=== PATIENT | male | born 1945 | race Two or more races ===

== ENCOUNTER 2024-03-24 08:36 | Outpatient (AMB) | payer MEDICARE, OTHER, SELFPAY ==
--- NOTE | 2024-03-24 08:49 | A.SPINEOV_ITS ---
Intake Visit Reasons: Radiculopathy, lumbar region Intake Note: Mr. May is here today c/o low back pain that radiates down both legs. Hydraulic Controls Technician Required: Yes Hydraulic Controls Technician Name: Carmen May Assessment & Plan Assessment & Plan (1) Cervical disc disorder: Code(s): M50.90 - Cervical disc disorder, unspecified, unspecified cervical region Category: Medical (2) Lumbar radiculopathy: Code(s): M54.16 - Radiculopathy, lumbar region Category: Medical Plan Dear Miguel, Thank you for referring Mr May to our office today. 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 He has had back pain for years and it has not something that he would otherwise complaint about, but over the last year it has gotten to the point where it started to radiate down his legs to where he can hardly walk. The back pain level has also increased significantly over the last year. The pain gets significantly worse when he stands and walks, gets better when he sits down. He uses a shopping cart in the grocery store just to get through his shopping tasks. Without it he would be unable to walk. He is undergone physical therapy, cortisone injections with some success. He has due for an upcoming injection on April 09. He can not take anti-inflammatories because of kidney issues, and is also limited with how much Tylenol he can take because of a fatty liver. Mostly he has been trying to deal with the pain as best he can. He does not take narcotics. He comes today to see us for evaluation with an MRI showing severe stenosis at L4-5 amongst other degenerative changes. PMH: He has a history of compensated diastolic heart failure, fatty liver disease, with some alcohol related liver disease, chronic kidney disease. He has followed by a draw frame tender I believe Dr. Simeon according to the [facility] [facility] records. His last creatinine was 1.6, but typically it had been in the normal range prior to that reading done a few months ago. He tells me that the doctor said he just needs routine monitoring and that the number was coming down according to some of the blood test that was done. He has mild aortic stenosis. He is followed by Cardiology for this at [place]. He has a recent note from January of 2024. They were following him for some leg swelling which is related to his amlodipine and they were adjusting his Lasix. He is chronic anemia his hematocrit tends to run in the mid 30s, hyperlipidemia. He denies any problems with his lungs, bleeding disorders, previous abdominal surgery, previous back surgery. Social hx: He does not smoke, he quit drinking a year ago but prior to that had a 5-6 beers a day habit, denies any medicinal marijuana or recreational drugs Medications: Lasix, amlodipine, folic acid, lisinopril, iron, carvedilol, hydralazine Allergies: None Physical exam: He is awake alert oriented here with his today, he is slow to stand up and get out of the chair to get on the examining table. He has lots of pain with standing. On motor examination testing, he has diffuse weakness of his upper extremities I would rate this as 4-5, with the hands being slightly weaker maybe 4-. Some of the right-sided weakness is related to a shoulder problem that he has that limits his ability to exert. He also has bilateral iliopsoas weakness which I would rate as 4-5. Distal lower extremity strength is full. I could not test his right ankle because of a fusion to that area. He is diffusely hyperreflexic with pectoral reflexes and Luis's sign in his left hand. Both patellar reflexes are hyperreflexic. Could not test his right ankle for clonus because of the fusion, no clonus in the left ankle. Imaging review: He has a lumbar MRI done at [facility] showing slight retrolisthesis of L3 on L4, significant disc collapse of L4 and L5 with b asically qawk-in-fjah endplate contact with severe central canal stenosis. He has disc degeneration at L5-S1 with right L5 foraminal stenosis. There also T2 hyperintense changes along the posterior aspect of the spinal canal which look possibly like they could be a synovial cyst. Impression: 78-year-old male presents with severe acute on chronic low back pain and bilateral lower extremity pain, left greater than right with standing walking which goes away when he sits. Seems fairly classic for neurogenic claudication. His MRI shows slight retrolisthesis of L3 on L4, severe disc collapse at L4-5 with severe central canal stenosis as well as degenerative changes at L5-S1 with right L5 foraminal narrowing and what appeared to be possible synovial cysts in the posterior spinal canal. I believe this gentleman would be a good candidate for surgery. Most likely this is going to be lumbar fusion. He has trialed conservative treatment and things only seemed to be continuing to get worse. I would like to get flexion-extension x-rays with an AP view to get a more clear look at what is spine is doing in a vertical position. He may need multiple levels of his spine fused depending on the results of the x-rays. Also, I would like to get a cervical MRI because of the hyperreflexia and diffuse weakness in the arms in the proximal lower extremity muscle groups. I suspect he may have a cervical myelopathy. He does report numbness of his hands and some gait imbalance. Thank you for allowing us to care for your patient. The total time spent with this visit with this patient was 45 minutes reviewing history, physical exam, lumbar imaging review, and implementation of treatment plan or further diagnostic testing Shawn Thapa MD,PhD [facility] [place] Orders: Orders XR cervical spine 4V Today M50.90 - Cervical disc disorder, unspecified, unspecified cervical region XR lumbar spine 4V min Today M54.16 - Radiculopathy, lumbar region MR cervical spine wo con Today M50.90 - Cervical disc disorder, unspecified, unspecified cervical region Coding Level of Care Code New Pt Level 4 (56402) Diagnoses Cervical disc disorder M50.90 Lumbar radiculopathy M54.16
== END 2024-03-24 09:53 | disposition home or self-care (01) ==
PROVIDERS: PCP Podiatrist; Referring Provider Physician Assistant; Visit Provider Physician Assistant
DX: M50.90 Cervical disc disorder, unspecified, unspecified cervical region (principal); M54.16 Radiculopathy, lumbar region
CPT/HCPCS: 99204

== ENCOUNTER 2024-03-24 08:36 | Outpatient (REF) | payer MEDICARE, OTHER, SELFPAY ==
--- NOTE | ~2024-03-24 | XR_ITS ---
EXAMINATION: XR lumbar spine 4V min, XR cervical spine 4V CLINICAL INFORMATION: Cervical disc disorder COMPARISON: None TECHNIQUE: 5 views of the cervical spine and 4 views of the lumbar spine FINDINGS: CERVICAL SPINE: The cervical spine is visualized to the level of C7-T1 on the lateral view. Dextroconvex curvature of the cervical spine. There is 4 mm of anterolisthesis of C3 on C4 in flexion which is neutral and extension views, 4 mm of anterolisthesis of C5 on C6 in flexion which measures 2 mm in extension views and 2 mm of anterolisthesis of C6 on C7 in flexion which is neutral in extension views. Vertebral body heights are maintained. Advanced multilevel degenerative disc disease with loss of disc space height and facet arthropathy. No prevertebral soft tissue swelling. Calcifications in the soft tissues of the left neck may reflect carotid calcifications. LUMBAR SPINE: 5 nonrib-bearing lumbar-type vertebral bodies. Mildly increased hepatic echogenicity which can be seen in the setting of hepatic steatosis or underlying liver disease. Age indeterminate wedge compression deformities of the T11 through L1 vertebral bodies, versus less likely physiologic wedging. Dextroconvex curvature of the lumbar spine. Mild grade 1 retrolisthesis of L2 on L3, and L3 on L4 and mild grade 1 anterolisthesis of L4 on L5, not significantly changed in flexion and extension views Multilevel degenerative disc disease worse at L4-L5 where there is advanced loss of disc space height with multilevel facet arthropathy. Paravertebral soft tissues are unremarkable. XR/XR lumbar spine 4V min IMPRESSION: CERVICAL SPINE: Dextroconvex curvature of the cervical spine. There is 4 mm of anterolisthesis of C3 on C4 in flexion which is neutral and extension views, 4 mm of anterolisthesis of C5 on C6 in flexion which measures 2 mm in extension views and 2 mm of anterolisthesis of C6 on C7 in flexion which is neutral in extension views. Advanced multilevel degenerative disc disease with loss of disc space height and facet arthropathy. LUMBAR SPINE: Age indeterminate wedge compression deformities of the T11 through L1 vertebral bodies, versus less likely physiologic wedging. Dextroconvex curvature of the lumbar spine. Mild grade 1 retrolisthesis of L2 on L3, and L3 on L4 and mild grade 1 anterolisthesis of L4 on L5, not significantly changed in flexion and extension views.
--- NOTE | ~2024-03-24 | XR_ITS ---
EXAMINATION: XR lumbar spine 4V min, XR cervical spine 4V CLINICAL INFORMATION: Cervical disc disorder COMPARISON: None TECHNIQUE: 5 views of the cervical spine and 4 views of the lumbar spine FINDINGS: CERVICAL SPINE: The cervical spine is visualized to the level of C7-T1 on the lateral view. Dextroconvex curvature of the cervical spine. There is 4 mm of anterolisthesis of C3 on C4 in flexion which is neutral and extension views, 4 mm of anterolisthesis of C5 on C6 in flexion which measures 2 mm in extension views and 2 mm of anterolisthesis of C6 on C7 in flexion which is neutral in extension views. Vertebral body heights are maintained. Advanced multilevel degenerative disc disease with loss of disc space height and facet arthropathy. No prevertebral soft tissue swelling. Calcifications in the soft tissues of the left neck may reflect carotid calcifications. LUMBAR SPINE: 5 nonrib-bearing lumbar-type vertebral bodies. Mildly increased hepatic echogenicity which can be seen in the setting of hepatic steatosis or underlying liver disease. Age indeterminate wedge compression deformities of the T11 through L1 vertebral bodies, versus less likely physiologic wedging. Dextroconvex curvature of the lumbar spine. Mild grade 1 retrolisthesis of L2 on L3, and L3 on L4 and mild grade 1 anterolisthesis of L4 on L5, not significantly changed in flexion and extension views Multilevel degenerative disc disease worse at L4-L5 where there is advanced loss of disc space height with multilevel facet arthropathy. Paravertebral soft tissues are unremarkable. XR/XR cervical spine 4V IMPRESSION: CERVICAL SPINE: Dextroconvex curvature of the cervical spine. There is 4 mm of anterolisthesis of C3 on C4 in flexion which is neutral and extension views, 4 mm of anterolisthesis of C5 on C6 in flexion which measures 2 mm in extension views and 2 mm of anterolisthesis of C6 on C7 in flexion which is neutral in extension views. Advanced multilevel degenerative disc disease with loss of disc space height and facet arthropathy. LUMBAR SPINE: Age indeterminate wedge compression deformities of the T11 through L1 vertebral bodies, versus less likely physiologic wedging. Dextroconvex curvature of the lumbar spine. Mild grade 1 retrolisthesis of L2 on L3, and L3 on L4 and mild grade 1 anterolisthesis of L4 on L5, not significantly changed in flexion and extension views.
== END 2024-03-24 08:37 | disposition home or self-care (01) ==
LOC: HO.HOSX 08:36
PROVIDERS: PCP Podiatrist; Visit Provider Physician Assistant
DX: M50.90 Cervical disc disorder, unspecified, unspecified cervical region (principal); M54.16 Radiculopathy, lumbar region
CPT/HCPCS: 72050; 72110; 99202

== ENCOUNTER 2024-04-25 13:39 | Outpatient (AMB) | payer MEDICARE, OTHER, SELFPAY ==
--- NOTE | 2024-04-25 13:47 | A.SPINEOV_ITS ---
Intake Visit Reasons: f/up MRI /review surgery Intake Note: Mr. May is here today to discuss MRI results. Iron Melter Required: Yes Assessment & Plan Assessment & Plan (1) Lumbar radiculopathy: Code(s): M54.16 - Radiculopathy, lumbar region Category: Medical (2) Cervical disc disorder: Code(s): M50.90 - Cervical disc disorder, unspecified, unspecified cervical region Category: Medical Plan Dear colleague, On 04/25/2024, I saw for follow-up Jackson May to discuss possible minimally invasive lumbar fusion L4-S1 for back pain and neurogenic claudication. In the meantime, he developed a venous thrombosis was right calf and is on Eliquis. He also had an active bleeding going on most likely coming from the digestive tract which is no longer active. Obviously, the patient is currently no surgical candidate and the surgical plan needs to be postponed until he is off the Eliquis. I recommended to make a new appointment in 6 months for a re- evaluation. I will call and update the patient with the MRI cervical spine findings. I spent 15 minutes in his consult. Jack Thapa MD, PhD Spine Fellowship Trained Neurosurgeon Director, [facility] [place] [facility] Coding Level of Care Code Est Pt Level 2 (96146) Diagnoses Lumbar radiculopathy M54.16 Cervical disc disorder M50.90
== END 2024-04-25 13:58 | disposition home or self-care (01) ==
PROVIDERS: PCP Podiatrist; Visit Provider Neurological Surgery
DX: M54.16 Radiculopathy, lumbar region (principal); M50.90 Cervical disc disorder, unspecified, unspecified cervical region
CPT/HCPCS: 99212

== ENCOUNTER → 2024-04-25 13:39 | Outpatient (BNVA) | payer MEDICARE, OTHER, SELFPAY | PROVIDERS: PCP Podiatrist; Visit Provider Neurological Surgery | DX: M54.16 Radiculopathy, lumbar region (principal); M50.90 Cervical disc disorder, unspecified, unspecified cervical region | CPT/HCPCS: 99212 ==

== ENCOUNTER 2024-11-27 16:17 | Outpatient (REF) | payer MEDICARE, OTHER, SELFPAY | END 2024-11-27 16:18 | disposition home or self-care (01) | LOC: HO.LNP 16:17 | PROVIDERS: Visit Provider Physician Assistant | DX: Z13.89 Encounter for screening for other disorder (principal) ==

== ENCOUNTER 2025-08-20 08:45 | Outpatient (AMB) | payer MEDICARE, OTHER, SELFPAY ==
--- NOTE | 2025-08-20 08:48 | A.PHYSOV_ITS ---
Vital Signs 08/20/25 08:53 Height 5 ft 10 in Weight 158 lb BMI 22.7 Intake Visit Reasons: 1M FUV Intake Note: Patient is a 80 year old male here today for chronic low back pain. Physician Neonatology Required: No Allergies No Known Allergies Allergy (Verified 08/20/25 08:50) HPI Comments Details: History of Present Illness Mr. May is a 80-year-old male seen in evaluation today for chronic low back pain with radiculopathy. Patient does have severe spinal canal stenosis at L4- 5. Patient also has compression of the L4 nerve roots as well as left L5. Patient did see 50% reduction of his pain for 1 week with L5-S1 KARTHIKEYAN. Patient would like to consider further treatment options. Patient is not interested in surgery at this time. He has been using Percocet for pain sparingly but unfortunately is not helpful. He is here today to undergo glenohumeral injection bilaterally. He has a pain level today of 7/10. His symptoms are worse with activity and improved with rest. He has failed conservative treatment. Procedure: Caudal injection 07/25/2024 good relief of his symptoms for 1 week and a half. Bilateral glenohumeral aspiration and injection 04/20/2025 L5-S1 KARTHIKEYAN 05/22/2025 50% reduction of his pain for 1 week. Bilateral knee cortisone injection 06/09/2025\ Bilateral glenohumeral joint injection 08/20/2025 [facility] Surgical History (Updated 08/20/25 @ 08:53 by Leslie Ellington MA) History of ankle surgery H/O: knee surgery Social History (Updated 08/19/25 @ 10:41 by Leslie Ellington MA) Alcohol intake: current Alcohol intake frequency: does not drink Patient Tobacco Use Status: Never used Tobacco Use of substances other than those prescribed or required for medical reasons: No Current occupational status: retired Review of Systems Narrative Review of Systems Consistent with low back pain with radiculopathy, bilateral shoulder pain. No incontinence, saddle anesthesia urinary retention. Physical Exam Exam Exam: Physical Exam Lumbar Spine: Examination of his lumbar spine, there is no visible swelling or deformity. He is tender to lower lumbar facets. Has full range of motion of his lumbar spine. He does have an increase in pain with facet loading. Special Tests: Lhermittes sign was negative Heel Toe walk is normal Left straight leg raise: Negative Right straight leg raise: Negative Special tests Leeann test is negative Ganslen's test is negative SI Joint compression test negative Sarmad test negative Piriformis stretch is negative Lower Extremities: Full range of motion bilateral lower extremities. No calf pain or edema. Neuro: Sensation: Intact to lower extremities bilaterally Strength L2 (Psoas): 5/5 on the left and 5/5 on the right. L3 (Quads): 5/5 on the left and 5/5 on the right. L4 (Ant tibialis): 5/5 on the left and 5/5 on the right. L5 (EHL) 5/5 on the left and 5/5 on the right. S1 (Gastroc): 5/5 on the left and 5/5 on the right. DTR L4: (Patellar) Left 1 Right 1 S1: (Achilles) Left 1 Right 1 Babinski Downgoing No pathologic clonus. No involuntary movement. Vital Signs: BMI result Body Mass Index 22.7 Office Procedures AMB Shoulder Injection AMB Shoulder Injection Procedure Details: Bilateral Glenohumeral joint injection: The patient was educated about risks, complications and benefits including but not limited to increased serum glucose, infection, nerve damage, bleeding, tendon/ligament damage and pain. We agree with a left glenohumeral injection is the next best step in the treatment plan. Verbal consent was obtained. Using aseptic technique, the skin was cleansed with Betadine. Ethyl chloride was used to desensitize the skin. Using a posterior approach, 40 mg of Kenalog and 3 mL 2% lidocaine were injected using a 25-gauge inch and a half needle into the joint. The patient tolerated the proce dure well without immediate complication. Postinjection instructions were given. The procedure was repeated on the right. Shoulder Injection - : Bilateral All charges added?: Procedure code (CPT) selection complete Office Meds Kenalog 40 mg/mL suspension for injection Performing Provider: GLORIA Hauser Performing Location: [facility] Administered by: GLORIA Hauser on 08/20/25 09:21 Dose Route Admin Location Dispensed Lot Number Expiration Date [facility] [employer] 40 mg intra-articular 1 mL [id number] [employer] Total Dispensed Waste 1 mL 0 % lidocaine (PF) 20 mg/mL (2 %) injection solution Performing Provider: GLORIA Hauser Performing Location: [facility] Administered by: GLORIA Hauser on 08/20/25 09:21 Dose Route Admin Location Dispensed Lot Number Expiration Date [facility] [employer] 60 mg intra-articular 50 mL [id number] Total Dispensed Waste 50 mL 0 % Assessment & Plan Assessment & Plan (1) Lumbar radiculopathy: Code(s): M54.16 - Radiculopathy, lumbar region Category: Medical (2) Spinal stenosis, lumbar region with neurogenic claudication: Code(s): M48.062 - Spinal stenosis, lumbar region with neurogenic claudication Category: Medical (3) Primary osteoarthritis of shoulder: Code(s): M19.019 - Primary osteoarthritis, unspecified shoulder Category: Medical Qualifiers: Laterality: bilateral Qualified Code(s): M19.011 - Primary osteoarthritis, right shoulder; M19.012 - Primary osteoarthritis, left shoulder (4) Chronic pain: Code(s): G89.29 - Other chronic pain Category: Medical Qualifiers: Chronic pain type: chronic pain syndrome Qualified Code(s): G89.4 - Chronic pain syndrome Plan Pain Management - Analgesia: Bilateral shoulder injections planned - Activities of Daily Living: Pain management to improve daily function - Adverse Effects: Potential increase in blood glucose levels due to injections Plan Patient was informed and verbally consented to the use of an ambient scribe for clinic note documentation during this visit. 1. Bilateral Shoulder Pain Secondary to osteoarthritis. Today he consented to bilateral glenohumeral joint injection. He is given post-injection instructions, recommend: Moist heat compresses for 15 minutes 5 times daily. Patient will continue his home exercise plan and medications as prescribed. I will prescribe tramadol for use for severe chronic pain including osteoarthritis of bilateral shoulders, severe spinal canal stenosis as well as severe knee osteoarthritis. Patient will use the medication 3 times a day. We will potentially contract him in the future 2. Patient does have severe spinal canal stenosis at L4-5 as well as compression of the L4 nerve roots. I recommend bilateral L4 TFE and he is eager to proceed. We will obtain prior authorization for his injection and contact him once we have done so. We discussed the benefits of proper nutrition and exercise to maintain a healthy body weight to improve longevity and function. We also discussed the benefits of proper lifting techniques, core strengthening and proper posture. Thank you for allowing me to participate in the care of your patient. Orders: Orders AMB Shoulder Injection Today M19.019 - Primary osteoarthritis, unspecified shoulder Medications: New tramadol 50 mg PO Q8H PRN 21 tabs 0RF pain M19.011 - Primary osteoarthritis, right shoulder, M19.012 - Primary osteoarthritis, left shoulder, M54.16 - Radiculopathy, lumbar region Coding Level of Care Code Tele Est Pt Level 4 (19383) Diagnoses Lumbar radiculopathy M54.16 Spinal stenosis, lumbar region with neurogenic claudication M48.062 Primary osteoarthritis of both shoulders M19.011; M19.012 Laterality: bilateral Chronic pain syndrome G89.4 Chronic pain type: chronic pain syndrome CPT Codes AMB Shoulder Injection - Hip/Bursa Injection - : Bilateral ([id number])
[2025-08-20 08:53] VITALS: BMI 22.7
--- OUTSIDE RECORDS SUMMARY | 2025-08-20 10:04 | XMS_ITS | Clinical Summary ---
Author Organization [facility] Address [address] [place] [address] Phone Care Team Providers Care Adobe Layer Helper Name Role Phone Unavailable Primary Care Provider Unavailabl e Allergies No known active allergies Medications furosemide (LASIX) 40 MG tablet Take 40 mg by mouth 1 (one) time each day 03/27/2024 Active folic acid (FOLVITE) 1 MG tablet Take 1 mg by mouth 1 (one) time each day 01/30/2023 Active amLODIPine (NORVASC) 5 MG tablet Take 5 mg by mouth in the morning. 03/05/2025 Active aspirin (ST NIRAV) 81 MG EC tablet Take 81 mg by mouth in the morning. Active cyanocobalamin (VITAMIN B-12) 1000 MCG tablet Take 1,000 mcg by mouth in the morning. 06/19/2024 Active Docusate Sodium (DSS) 100 MG capsule Take 100 mg by mouth in the morning and 100 mg in the evening. 05/13/2024 Active ergocalciferol 1.25 MG (60989 UT) capsule Take 50,000 Units by mouth 1 (one) time per week 01/15/2025 Active lisinopril 2.5 MG tablet Take 2.5 mg by mouth in the morning. 01/15/2025 Active lisinopril (PRINIVIL,ZESTR IL) 30 MG tablet Take 30 mg by mouth 10/17/2024 Active magnesium oxide (MAG-OX) 400 MG tablet Take 400 mg by mouth in the morning. 09/12/2024 Active pantoprazole (PROTONIX) 40 MG EC tablet Take 40 mg by mouth Active Riboflavin 400 MG tablet Take 400 mg by mouth in the morning. 09/12/2024 Active Active Problems Problem Noted Date Diagnosed Date Stage 3a chronic kidney disease 03/19/2025 Acute nontraumatic kidney injury 05/22/2024 Chronic kidney disease, stage 2 (mild) 4 Fatty liver 05/08/2024 Nonrheumatic aortic valve stenosis 02/20/2024 Chronic diastolic heart failure 07/09/2023 Mixed hyperlipidemia 07/09/2023 Congestive heart failure 06/29/2023 Chronic low back pain 06/06/2023 Overview (05/08/2024): Last Assessment & Plan: Mr. May describes about 1 month of back pain and radiation to the left lower extremity. We talked about nonsteroidal anti-inflammatory medications and appropriate doses. We talked about other conservative modalities including physical therapy, acupuncture, chiropractor, and yoga. Going to send him for some x-rays of the lumbar spine to ensure that there is not any instability. After reviewing those films, he will begin some physical therapy. He will call me towards the end of therapy to make an appointment and come back in if he is not improving significantly. We can consider an MRI of the lumbar spine at that time. Prediabetes 01/22/2019 Primary hypertension 03/27/2017 Osteoarthritis of knee 09/06/2011 Allergic rhinitis, cause unspecified 03/08/2006 Chronic anemia 03/08/2006 Overview (05/08/2024): IMO Update Fall 2015 Pure hypercholesterolemia 03/08/2006 Immunizations Immunization Administration Dates Next Due H1N1 Inj Preservative Free 09/16/2009 Influenza (IM) Preservative Free 07/17/2015 Influenza Split High Dose Pr eservative Free IM 07/23/2020,06/08/2018,06/27/2017,06/22 Influenza, MDCK, Quadrivalen t, with preservative 06/18/2023 Pfizer SARS-COV-2 06/18/2023, 1,02/25/2021,02/04 Pneumococcal Conjugate 13-Valent 07/31/2015 Pneumococcal Polysaccharide 04/02/2023, 2 Shingrix 07/04/2023,04/05/2021 Tdap 06/22/2023,08/08/2010 Zoster 04/13/2013 Social History Tobacco Use Types Packs/Day Years Used Date Smoking Tobacco: Never Tobacco Cessation:Counseling Given: Not Answered Alcohol Use Standard Drinks/Week Comments Never 0 (1 standard drink = 0.6 oz pur e alcohol) Sex and Gender Information Value Date Recorded Sex Assigned at Not on file Legal Sex Male 8:58 AM EDT Gender Identity Not on file Sexual Orientation Not on file Last Filed Vital Signs Vital Sign Reading Time Taken Comments Blood Pressure 104/64 03/19/2025 1:06 PM EDT Pulse 74 03/19/2025 1:06 PM EDT Temperature - - Respiratory Rate - - Oxygen Saturation - - Inhaled Oxygen Concentration - - Weight 74.8 kg (165 lb) 03/19/2025 1:06 PM EDT Height - - Body Mass Index - - Plan of Treatment Upcoming Encounters Date Type Department Care Team (Late st Contact Info) Description 03/18/2026 1:15 PM EDT [facility] [address] [place] [id number] Demarcus Simeon MD [address] [address] Health Maintenance Due Date Last Done Comments Diabetes: Hemoglobin A1C 10/22/2024 05/13/2024 Diabetes: Ophthalmology Exam 10/22/2024 Diabetes: Pedal Pulse Checked 10/22/2024 Diabetes: Sensory Foot Exam 10/22/2024 Diabetes: Visual Foot Exam 10/22/2024 Influenza Vaccine (#1) 2025 4, 06/18/2023, 07/17/2022, Additional history exists Pneumococcal Vaccine: 50+ Years Completed 04/02/2023, 07/31/2015, 09/03/2012 Hepatitis B Vaccine Aged Out No longe r eligible based on patient's age to complete this topic Insurance Medicare [facility] Medicare [facility]
== END 2025-08-20 09:15 | disposition home or self-care (01) ==
LOC: HO.HPHYS 08:45
PROVIDERS: PCP Internal Medicine; Visit Provider Physician Assistant
DX: M54.16 Radiculopathy, lumbar region (principal); M48.062 Spinal stenosis, lumbar region with neurogenic claudication; M19.011 Primary osteoarthritis, right shoulder; M19.012 Primary osteoarthritis, left shoulder; G89.4 Chronic pain syndrome; M19.019 Primary osteoarthritis, unspecified shoulder
CPT/HCPCS: 20610; 99214

== ENCOUNTER → 2025-08-20 08:45 | Outpatient (BNVA) | payer MEDICARE, OTHER, SELFPAY | PROVIDERS: PCP Internal Medicine; Visit Provider Physician Assistant | DX: M19.011 Primary osteoarthritis, right shoulder (principal); M19.012 Primary osteoarthritis, left shoulder; G89.4 Chronic pain syndrome; M48.062 Spinal stenosis, lumbar region with neurogenic claudication; M54.16 Radiculopathy, lumbar region | CPT/HCPCS: 20610; 99212; J2003; J3301 ==

== ENCOUNTER 2025-09-04 11:03 | Outpatient (AMB) | payer MEDICARE, OTHER, SELFPAY ==
[2025-09-04 11:15] VITALS: BP 165/79; PULSE 82; TEMP 37; BMI 22.7
--- NOTE | 2025-09-04 11:15 | A.PHYSOV_ITS ---
Vital Signs 09/04/25 11:15 Height 5 ft 10 in Weight 158 lb BMI 22.7 BP 165/79 H Pulse 82 Temp 98.6 F Intake Visit Reasons: Bilateral Lumbar Transforaminal Epidural L4 Intake Note: Patient is a 80 year old male in office today for a bilateral L4 transforaminal epidural injection. Plastic Surgery Nurse Required: No Allergies No Known Allergies Allergy (Verified 09/04/25 11:14) PFSH Surgical History (Updated 08/20/25 @ 08:53 by Leslie Ellington MA) History of ankle surgery H/O: knee surgery Social History (Updated 08/19/25 @ 10:41 by Leslie Ellington MA) Alcohol intake: current Alcohol intake frequency: does not drink Patient Tobacco Use Status: Never used Tobacco Current occupational status: retired Physical Exam Vital Signs: Last Vital Signs Temp 98.6 F 09/04/25 11:15 Pulse 82 09/04/25 11:15 BP 165/79 H 09/04/25 11:15 BMI result Body Mass Index 22.7 Office Procedures Procedure Details: Procedure performed: Bilateral L4 transforaminal epidural steroid injection Preop diagnosis: Lumbar radiculitis Postop diagnosis: The same Anesthesia: Local After informed consent was obtained, patient was placed on the procedure table in a prone position. Skin over lumbosacral area was prepped and draped in usual sterile manner. Right L4 pedicle was visualized utilizing fluoroscopy. 5 inch 22 gauge spinal needle was introduced percutaneously and advanced towards the pedicle at about 6 o'clock position. Once level of neural foramina was reached, needle placement was verified utilizing 3 cc of Omnipaque contrast solution. Excellent flow through the neural foramina and epidural spread was identified without evidence of vascular uptake. Total volume of 6 cc containing 2 cc of 1% lidocaine, 40 mg of triamcinolone and normal saline solution were injected after negative aspiration for blood and cerebrospinal fluid. Identical procedure was repeated on the opposite side. Radiation exposure was documented in the chart. Lumbar transforaminal Epidural Steroid Inj- use with FL Gd: 44857 - Single (Bilateral procedure was done) Procedure code (CPT) selection complete Office Meds Kenalog 40 mg/mL suspension for injection Performing Provider: Abner Ponce DO [place] [facility] [place] [facility] Administered by: Abner Ponce DO on 09/04/25 11:36 Dose Route Admin Location Dispensed Lot Number Expiration Date [facility] Telegraphic Instrument Supervisor 80 mg epidural 2 mL [id number] [employer] Total Dispensed Waste 2 mL 0 % lidocaine (PF) 10 mg/mL (1 %) injection solution Performing Provider: Abner Ponce DO Performing Location: [facility] Administered by: Abner Ponce DO on 09/04/25 11:36 Dose Route Admin Location Dispensed Lot Number Expiration Date [facility] Telegraphic Instrument Supervisor 50 mg epidural 5 mL [id number] LYME PHAR Total Dispensed Waste 5 mL 0 % Omnipaque 300 300 mg iodine/mL intravenous solution Performing Provider: Abner Ponce DO Performing Location: [facility] Administered by: Abner Ponce DO on 09/04/25 11:36 Dose Route Admin Location Dispensed Lot Number Expiration Date [facility] Telegraphic Instrument Supervisor 3 mL epidural 10 mL [id number] [employer] Total Dispensed Waste 10 mL 70 % Assessment & Plan Assessment & Plan (1) Lumbar radiculopathy: Code(s): M54.16 - Radiculopathy, lumbar region Category: Medical Plan: Procedure Plan Procedure Orders: Orders AMB Lumbar transforaminal Epidural Steroid Injection Today M54.16 - Radiculopathy, lumbar region FL Gd Lumbar Transforaminal In Today M54.16 - Radiculopathy, lumbar region Coding Level of Care Code Procedure Only Diagnoses Lumbar radiculopathy M54.16 CPT Codes Lumbar transforaminal Epidural Steroid I - CPT TRANSFORM: 97456 - SingleBilateral procedure was done ([id number])
--- OUTSIDE RECORDS SUMMARY | 2025-09-04 13:35 | XMS_ITS | Encounter Summary ---
Author Organization [facility] Address [address] [place] [address] Care Team Providers Care Supervisor Histology Name Role Phone Gareth Schofield MD Primary Care Provider [phone] Reason for Visit * Reason Onset Date Comments Walk-in 08/21/2024 Patient in [facility] Encounter Details Date Type Department Care Team (Late st Contact Info) Description 08/21/2024 Nurse Triage Adult Medicine [address] [phone] Gareth Schofield MD [address] [place] [address] Social History Tobacco Use Types Packs/Day Years Used Date Smoking Tobacco: Never Smokeless Tobacco: Never Alcohol Use Standard Drinks/Week Comments Not Currently 0 (1 standard drink = 0.6 oz pur e alcohol) Sex and Gender Information Value Date Recorded Sex Assigned at Male 08/27/2024 10:02 AM EST Legal Sex Male 5:42 PM EST Gender Identity Male 08/27/2024 10:02 AM EST Sexual Orientation Straight 08/27/2024 10 :02 AM EST documented as of this encounter Progress Notes * Maryana Morales RN - 08/21/2024 8:31 AM EST Pt. And pt.'s are in the [facility] , brought into the exam room BP 182/81 p82 pt. Denied headache,no visual changes or floaters. Pt. Did just have cataract surgery . He denies weakness, cp or sob, . Pt. Has been receiving iron infusions and has not been able to getthem due to BP being too high. Pt. Is presently being treated for DVT . He denies black tarry stool, or abd pain , no dizziness or lightheadedness Reviewed with provider , rechecked bp 166/82 p81. Pt. Booked for this a.m. Answer Assessment - Initial Assessment Questions 1. BLOOD PRESSURE: What is your blood pressure? Did you take at least two measurements 5 minutesapart? This am 137/74 but on Sunday at [facility] 198/>85 2. ONSET: When did you take your blood pressure? Not sure but has hx of HTN but noted higher when he went to the hospital 2 weeks ago 3. HOW: How did you take your blood pressure? (e.g., automatic home BP monitor, visiting nurse) Machine/arm 4. HISTORY: Do you have a history of high blood pressure? yes 5. MEDICINES: Are you taking any medicines for blood pressure? Have you missed any doses recently? lisinopril 6. OTHER SYMPTOMS: Do you have any symptoms? (e.g., blurred vision, chest pain, difficulty breathing, headache, weakness) No cp, no sob,no dizziness, no weakness, no headache 7. : Is there any chance you are ? When was your last menstrual period? N/A Protocols used: Blood Pressure - High-A-AH * Telma Lazcano - 08/21/2024 7:56 AM EST Patient call requires triage: Symptoms patient is presenting: Elevated BP. Was told by 2 medical specialist to go to ED patient declined to got to ED. How long has patient had these symptoms?: A couple weeks For ALL patients calling to schedule any appointment (routine, sick visit, follow up, consult, etc.) in the outpatient setting please ask the following questions: Do you have fever of higher than 101, sore throat with difficulty swallowing or severe shortness ofbreath? no If YES to any of these above symptoms, send a message to triage and do not book. Red dot. If no, an audio or video visit should be booked. Have you had close contact with someone with Coronavirus in the last 14 days? no Have you traveled abroad? no Have you traveled recently to another state outside of [place], [place], [place], [place], [place], [place], [place]? no o If yes, did you quarantine for 14 days or have a negative covid test? no If yes to any of the above, patient is not to be scheduled in office until after 14 day quarantine or negative covid test. If pain or injury related was it due to an accident at work or from a motor vehicle accident? If yes, date of accident/Injury: No If yes, gather 3rd constitution party insurance information [employer] Information: not applicable PCP: Gareth Schofield MD Payor: / No coverage found. documented in this encounter Plan of Treatment Upcoming Encounters Date Type Department Care Team (Late st Contact Info) Description 09/09/2025 11:30 AM EST Office Visit Adult Medicine [address] [phone] Gareth Schofield MD [address] [place] [address] 09/10/2025 8:15 AM EST Office Visit Orthopedic Surgery - [address] [phone] Lazarus Cheng DPM [address] [id number] documented as of this encounter Visit Diagnoses Not on filedocumented in this encounter Care Teams Supervisor Histology Relationship Specialty Start Date End Date Gareth Schofield MD [address] [place] [address] PCP - General 04/02/23 documented as of this encounter
--- OUTSIDE RECORDS SUMMARY | 2025-09-04 13:35 | XMS_ITS | Clinical Summary ---
Author Organization [address] [facility] Address [address] [place] [address] Phone Care Team Providers Care Boat Joiner Helper Name Role Phone Gareth Schofield MD Primary Care Provider [phone] Allergies Active Allergy Reactions Criticality Noted Date Comments Other 02/06/2007 Seasonal Allergies Other Reaction(s): Runny Nose/Rhinitis Medications docusate sodium (COLACE) 100 mg capsule Take 1 capsule (100 mg total) by mouth 2 (two) times a day. 4 Active folic acid (FOLVITE) 1 mg tablet Take 1 tablet (1,000 mcg total) by mouth 1 (one) time each day. Active cyanocobalamin (VITAMIN B-12) 1,000 mcg tablet Take 1 tablet (1,000 mcg total) by mouth 1 (one) time each day. 4 Active magnesium oxide (MAG-OX) 400 mg magnesium tablet Take 1 tablet (400 mg total) by mouth 1 (one) time each day. 90 tablet 1 4 Active riboflavin (VITAMIN B2) 400 mg tablet Take 1 tablet (400 mg total) by mouth 1 (one) time each day. 90 tablet 1 4 Active aspirin 81 mg EC tablet Take 1 tablet (81 mg total) by mouth 1 (one) time each day. Active fexofenadine (MERLYN) 180 mg tablet Take 1 tablet (180 mg total) by mouth at bedtime as needed (allergies/ itching). 30 tablet 2 5 Active amLODIPine (NORVASC) 5 mg tablet TAKE 1 TABLET BY MOUTH EVERY DAY 90 tablet 1 06/05/202 5 Active furosemide (LASIX) 20 mg tablet TAKE 1 TABLET (20 MG TOTAL) BY MOUTH ONE TIME EACH DAY 90 tablet 1 5 Active oxyCODONE-aceta minophen (PERCOCET) 5-325 mg per tablet Take 1 tablet by mouth 4 (four) times a day if needed. Max Daily Amount: 4 tablets 5 Active lisinopriL (PRINIVIL,ZESTR IL) 30 mg tablet Take 1 tablet (30 mg total) by mouth 1 (one) time each day. In addition to 2.5 mg daily 90 each 1 5 Active pantoprazole (PROTONIX) 40 mg EC tablet Take 1 tablet (40 mg total) by mouth 2 (two) times a day. 180 tablet 1 5 Active predniSONE (DELTASONE) 10 mg tablet 20 mg daily for 4 days and 10 mg daily for 4 days. 12 each 5 Active cholecalciferol (VITAMIN D-3) 25 mcg (1,000 unit) tablet Take 1 tablet (1,000 Units total) by mouth 1 (one) time each day. 90 tablet 3 5 Active lisinopriL (PRINIVIL,ZESTR IL) 2.5 mg tablet TAKE 1 TABLET (2.5 MG TOTAL) BY MOUTH 1 (ONE) TIME EACH DAY. IN ADDITION TO LISINOPRIL 30 MG DAILY 90 tablet 5 Active Active Problems Problem Noted Date Diagnosed Date Gastroesophageal reflux dise ase with esophagitis without hemorrhage 04/27/2025 Fatty liver 07/11/2024 Chronic deep vein thrombosis (DVT) of distal vein of right lower extremity ([facility] V24, [facility] V28) 06/19/2024 B12 deficiency 06/19/2024 Gastrointestinal hemorrhage 06/19/2024 Constipation 05/13/2024 Gastroesophageal reflux disease without esophagi tis 05/13/2024 Acute deep vein thrombosis ( DVT) of calf muscle vein of right lower extremity ([facility] V24, CMS/[facility] V28) 05/01/2024 Venous insufficiency 05/01/2024 Assessment & Plan (04/16/2025 9:27 AM EDT): Edema likely secondary to venous insufficiency. Continue with furosemide. Continue with compression stockings. Educated about reducing sodium intake, elevation of extremities while seated, weight loss and exercise. Bilateral leg edema 04/24/2024 Stage 3 chronic kidney disease (CMS/HCC V24, CMS /HCC V28) 03/27/2024 Severe aortic stenosis 02/20/2024 Overview (04/16/2025): 09/22/24 TRANSTHORACIC ECHOCARDIOGRAM (TTE) COMPLETE (CONTRAST/BUBBLE/3D PRN) 09/22/2024 09/22/2024 Interpretation Summary Left ventricle cavity size is normal. Left ventricular systolic function is in the normal range with an ejection fraction of 65-70%. No regional LV wall motion abnormalities noted. Left ventricle mild concentric hypertrophy. Right ventricle cavity is normal. Right ventricular systolic function is normal. Aortic valve demonstrates severe stenosis. Aortic valve leaflets are moderately thickened. The valve might be bicuspid. The Sinus of Valsalva is dilated (3.5 cm). The ascending aorta is dilated (4.1 cm). No prior echo for comparison. Signed by: Yonas Brown MD on 09/22/2024 2:16 PM 03/16/25 CARDIAC PROCEDURE 03/17/2025 03/16/2025 Conclusion Coronary anatomy: Left main coronary arises left coronary sinus and bifurcates into left anterior descending and circumflex system. The left main is free of disease Left anterior descending artery: Left anterior descending artery arises from the left main coronary artery coursed around the apex and is free of significant disease only minimal luminal changes Left circumflex artery arises from left main coronary artery has minimal luminal changes Right coronary arises the right coronary sinus is the PDA it is right dominant with minimal changes No obstructive coronary disease identified Signed by: Greyson Mckeon MD on 03/17/2025 8:28 AM Assessment & Plan (04/16/2025 9:27 AM EDT): Patient with episodes of heart failure in setting of severe aortic stenosis. Catheterization completed. Patient awaiting TAVR CT scans, CT surgery consult and then TAVR conference. Currently euvolemic and minimal, if any symptoms. Reviewed TAVR process with he and his as well as nature of aortic stenosis. Assessment & Plan (11/10/2024 11:55 AM EST): The patient appears to be suitable candidate for TAVR procedure. He has not had overt congestive heart failure although has clearly severe aortic stenosis on echocardiogram and in context of needing a spinal surgery for significant life limiting back pain, his aortic stenosis will need to be addressed first. We had a discussion of the natural history of aortic stenosis and the management options which include continued medical therapy, transcatheter aortic valve replacement, surgical aortic valve replacement or palliative care. We reviewed the risk and benefits of these approaches and decided to proceed with an evaluation for TAVR. Periprocedural risks with estimated likelihood include stroke at 2%, permanent pacemaker at 8 to 10%, major bleeding at 3%, vascular complication at 1 to 2%, and at 1 to 2%. The patient accepts these risks and would like to proceed. The evaluation process will include a cardiac catheterization, evaluation by cardiothoracic surgery and a TAVR CTA. The studies will be arranged in coordination with our office and the TAVR coordinators at the [facility] structural heart disease program. After all the studies have been completed the patient's care will be reviewed in a multidisciplinary meeting in the next steps will be determined. Assessment & Plan (10/27/2024 8:34 AM EST): The patient has severe aortic stenosis. His examination reveals an absent aortic component of the second heart sound as well as late peaking murmur and delayed and diminished carotid upstrokes. There is no evidence of active congestive heart failure and the patient is not reporting any exertional symptoms. This is likely due to the fact that the patient is remarkably sedentary due to his rather profound back issues limiting his mobility and strength. Echocardiography demonstrated severe aortic stenosis with preserved left ventricular systolic function. There is a mean transvalvular gradient of 52 mmHg. I will make arrangements for right heart catheterization and coronary angiography.. This testing will be a prelude to consideration of the patient's candidacy for transcatheter aortic valve replacement. I initiated a conversation with the patient and his remarkably insightful about the nature of aortic valve interventions and available options for this challenging situation. The neck step will be outpatient cardiac catheterization. Orders: ECG 12 lead Mixed hyperlipidemia 07/09/2023 Assessment & Plan (04/16/2025 9:27 AM EDT): Diet controlled. Chronic diastolic CHF (conge stive heart failure) ([facility] V24, [facility] V28) 06/29/2023 Assessment & Plan (04/16/2025 9:27 AM EDT): Echocardiogram from August 2024 showed pEF and severe . Aside from lower extremity edema, he appears compensated on exam. Continue with furosemide. Consider adding SGLT2 inhibitor. We reviewed heart failure management including low- sodium diet, symptom surveillance, daily weights and medication compliance. The patient is aware they may take extra diuretic for intermittent evidence of mild congestive signs and symptoms. If the increase of frequency of as needed diuretic becomes more regular than they will make our office aware. If the patient has weight gain over 3lbs in one day or 5lbs over several days, they are aware to contact our office. With any severe or sustained symptoms, they are aware to contact EMS via 911 and go to the emergency room. Assessment & Plan (10/27/2024 8:34 AM EST): The patient has a history of diastolic congestive heart failure which predates the development of severe aortic stenosis. At this time he has clinical and echocardiographic evidence of severe aortic stenosis but no evidence of jugular venous distention, rales or peripheral edema. The patient is not reporting active chest discomfort or breathlessness. However his aortic stenosis has progressed to the severe range and attention needs to be directed to the aortic valve including evaluation for potential TAVR before any elective surgery can be considered. Orders: ECG 12 lead Chronic left-sided low back pain with left-sided sciatica 06/06/2023 Assessment & Plan (04/16/2025 9:27 AM EDT): Prediabetes 01/22/2019 Primary hypertension 03/27/2017 Assessment & Plan (04/16/2025 9:27 AM EDT): Controlled. Lisinopril 32.5 mg seems to be perfect dose for him as 35 mg drops his pressure symptomatically low. Continue with amlodipine and furosemide. Assessment & Plan (10/27/2024 8:34 AM EST): Blood pressure is well-controlled today. Will continue his present medical regimen. DJD (degenerative joint disease) of knee 011 Allergic rhinitis 03/08/2006 Overview (07/11/2024): Cause unspecified Chronic anemia 03/08/2006 Overview (07/11/2024): IMO Update Fall 2015 Pure hypercholesterolemia 03/08/2006 Assessment & Plan (10/27/2024 8:34 AM EST): The patient has a chart diagnosis of hyperlipidemia but is not presently treated with statin therapy or with any other lipid-lowering medication. Recent LDL cholesterol was 150 mg/dL. I do not at this time know if the patient has had adverse effects from statin therapy in the past. If there is no history of statin issues I would advise initiation of moderate to high intensity statin such as atorvastatin 40 mg a day. Orders: ECG 12 lead Encounters Date Type Department Care Team Description 07/07/2025 8:30 AM EDT Office Visit Orthopedic Surgery - [address] [address] Lazarus Cheng, DPSteven Arthritis of both feet (Primary Dx); Lumbosacral radiculopathy; Controlled type 2 diabetes with neuropathy (CMS/HCC V24, CMS/HCC V28); Disorder of ligament of ankle, right; Chronic pain of right ankle from Last 3 Months Immunizations Immunization Administration Dates Next Due COVID-19 (Pfizer/Comirnaty) 12yo and older 06/18/2024 H1N1 Inj Preservative Free 09/16/2009 Hepatitis A-Hepatitis B Adul t (Twinrix) 18yo and older 08/18/2025 Influenza Quadravalent, MDCK , 0.5ml, with preservative (Flucelvax) 6mo and older 06/18/2023 Influenza trivalent, 0.5mL ( Fluad) 65yo and older 06/08/2018,06/27/2017,06/22/2016 Influenza trivalent, 0.5mL ( Fluzone High-dose) 65yo and older 06/23/2025,06/18/2024,06/08/2018,06/08,06/22/2016 Influenza trivalent, 0.5mL, preservative free (Fluarix; FluLaval; Fluzone) ages 6mo and older (Afluria) 3 years and older 07/17/2022,08/12/2021,07/23/2020,07/17,06/25/2014,07/23/2013,09/03/2012 ,06/04/2010,07/01/2008,08/20/2007,08/03,08/04/2005 Influenza, Unspecified 06/18/2024,2022,06/08/2018,06/08,06/27/2017,06/22/2016 PPD Test 01/04/2004 [place] Covid-19 Bivalent, Or iginal + Ba.1 (Non-US Trademark [employer] Bivalent) 08/22/2022 Pneumococcal conjugate 13 va lent (Prevnar 13, PCV13) 2mo and older 07/31/2015 Pneumococcal conjugate 20 va lent (Prevnar 20, PCV 20) 2mo and older 06/18/2024 Pneumococcal conjugate 21 va lent (CAPVAXIVE, PCV 21) 19yo and older 06/23/2025 Pneumococcal polysaccharide 23 valent (Pneumovax 23) 2yo and older 04/02/2023,09/03/2012 RSV, bivalent, protein subun it RSVpreF, 0.5mL, Preservative Free (Arexvy) 50yo and older 06/05/2024,07/16/2023,07/16/2023 Td Tetanus diptheria (Tdvax) 7yo and older 01/04/2004,01/04/2004 Tdap Tetanus diptheria acell ular pertussis (Boostrix; Adacel) 7yo and older 06/22/2023,08/08/2010 Zoster Live 04/13/2013,04/13/2013 Zoster recombinant (Shingrix ) 19yo and older 07/04/2023,04/05/2021 Surgical History Surgery Date Site/Laterality Comments OTHER SURGICAL HISTORY PROCEDURE: NM CORRECTION HAMMERTOE; COMMENT: right 2nd, 3rd COLONOSCOPY 03/03 PROCEDURE: NM COLONOSCOPY STOMA DX INCLUDING COLLJ SPEC SPX; COMMENT: Normal KNEE ARTHROSCOPY W/ DEBRIDEMENT 12/08/11 PROCEDURE: NM ARTHRS KNEE DEBRIDEMENT/SHAVING ARTCLR CRTLG; COMMENT: left OTHER SURGICAL HISTORY 2013 PROCEDURE: NM ARTHRODESIS ANKLE OPEN; COMMENT: [facility] CARDIAC CATHETERIZATION DONE ON 03/16/2025 AT [facility] Medical History Medical History Date Comments Anemia, unspecified DX:Anemia, u nspecified Pure hypercholesterolemia DX:Pur e hypercholesterolemia Unspecified hemorrhoids with other complication DX:Unspecified hemorrhoids w ith other complication Allergic rhinitis, cause unspecified DX:Allergic rhinitis, cause unspecified Glossitis 03/08/2006 DX:Glossitis; CO MMENT: Burning in mouth Hypertension 03/27/2017 DX:Hypertension Fatty liver DX:Fatty liver Family History Medical History Relation Name Comments Other cancer Father kidney Other: at 76 - unknown cause Mother Relation Name Status Comments Brother Alive Healthy Daughter Alive 1 healthy Father (Age 76) kidney can cer Maternal Grandfather Maternal Grandmother [place] Mother (Age 76) unknown ca use Paternal Grandfather [place] Paternal Grandmother [place] Sister 1 (Age 58) [place] Sister 2 Alive Healthy Social History Tobacco Use Types Packs/Day Years Used Date Smoking Tobacco: Never Smokeless Tobacco: Never Tobacco Cessation:Counseling Given: Not Answered Alcohol Use Standard Drinks/Week Comments Not Currently 0 (1 standard drink = 0.6 oz pur e alcohol) Housing Instability Answer Date Recorde d Are you worried that in the next 2 months you may not have stable housing? No 09/12/2024 Food Access & Nutrition Answer Date Rec orded Do you have access to a vari ety of food including fruits and vegetables? Yes 09/12/2024 Access to Healthcare Answer Date Record ed Within the last 3 months, susi cruz many times did you visit the emergency department for your medical care? 3 09/12/2024 Health Literacy Answer Date Recorded How often do you need to hav e someone help you when you read instructions, pamphlets, or other written material from your doctor or pharmacy? Never 09/12/2024 Caregiver: How often do you need to have someone help you when you read instructions, pamphlets, or other written material from your doctor or pharmacy? Not on file 09/12/2024 Financial Risk Answer Date Recorded How hard is it for you to pa y for the very basics like food, housing, medical care, and air conditioning / heating? Not very hard 09/12/2024 Transportation Answer Date Recorded Has the lack of transportati on kept you from meetings, work, or from getting things needed for daily living? No Has the lack of transportati on kept you from medical appointments or from getting medications? No 09/12/2024 Social Isolation Answer Date Recorded How often do you feel lonely or isolated from th ose around you? Never 09/12/2024 Food Risk Answer Date Recorded Within the past 12 months we worried whether our food would run out before we got money to buy more. Never true 09/12/2024 Within the past 12 months th e food we bought just didn't last and we didn't have money to get more. Never true 09/12/2024 Dependent Care Answer Date Recorded Do you need help finding or paying for care for your loved ones. For example, children's librarian or elderly care for an older adult? No 09/12/2024 Employment and Income Answer Date Recor ded During the last four weeks, have you been actively looking for work? No 09/12/2024 Living Situation Answer Date Recorded What is your living situation? Unrecognized valu e 09/12/2024 Sex and Gender Information Value Date Recorded Sex Assigned at Male 08/27/2024 10:02 AM EST Legal Sex Male 5:42 PM EST Gender Identity Male 08/27/2024 10:02 AM EST Sexual Orientation Straight 08/27/2024 10 :02 AM EST Obstetrics History Last Filed Vital Signs Vital Sign Reading Time Taken Comments Blood Pressure 130/82 04/27/2025 12:58 PM EDT Pulse 78 04/27/2025 12:58 PM EDT Temperature 36.3 C (97.4 F) 04/27/2025 12:58 PM EDT Respiratory Rate 18 04/27/2025 12:58 PM EDT Oxygen Saturation 96% 04/16/2025 8:34 AM EDT Inhaled Oxygen Concentration - - Weight 75.8 kg (167 lb) 04/27/2025 12:58 PM EDT Height 177.8 cm (5' 10 ) 04/27/2025 12:58 PM EDT Body Mass Index 23.96 04/27/2025 12:58 PM EDT Plan of Treatment Upcoming Encounters Date Type Department Care Team (Late st Contact Info) Description 09/09/2025 11:30 AM EST Office Visit Adult Medicine [facility] [address] [place], [place] [phone] Gareth Schofield MD [address] [place], [place] 09/10/2025 8:15 AM EST Office Visit Orthopedic Surgery - [place] [phone] [phone] Lazarus Cheng DPM [address] [phone] Health Maintenance Due Date Last Done Comments Diabetes: Annual Foot Exam 1955 Diabetes: Annual Retina Eye Exam 1955 Colorectal Cancer Screening: Stool Based Tests (FOBT/FIT) 09/09/2022 Medicare Annual Wellness Visit 07/09/2024 07/09/2023 Depression Screening 10/01/2024 09/12/2024 COVID-19 Vaccine ( season) 2025 06/18/2024, 06/18/2023, 08/30/2021, Additional history exists Falls Risk Assessment 06/19/2025 06/19/2024 Diabetes: Annual Urine Albumin-Creatinine Ratio (uACR) 07/07/2025 01/30/2024 Diabetes: Blood Sugar Control Test (HGBA1C) 07/07/2025 05/13/2024, 05/13/2024 Social Influencers of Health Screening 09/12/2025 09/12/2024 Hepatitis B Vaccines (2 of 3 - Hep B Twinrix 3-dose series) 09/15/2025 08/18/2025 Diabetes: Annual GFR (Glomerular Filtration Rate) 03/16/2026 03/16/2025, 09/12/2024, 08/21/2024, Additional history exists Hypertension/CHF/CAD Annual BMP Blood Test 03/16/2026 03/16/2025, 09/12/2024, 08/21/2024, Additional history exists Cholesterol Screening (Lipid Panel) 08/21/2029 08/21/2024, 04/13/2023 DTaP,Tdap,and Td Vaccines (5 - Td or Tdap) 06/22/2033 06/22/2023, 08/08/2010, 01/04/2004, Additional history exists Hepatitis C Screening Completed 03/20/2013 Zoster Vaccines Completed 07/04/2023, 07/03/2021, 04/13/2013, Additional history exists Colorectal Cancer Screening: Colonoscopy Discontinued 04/19/2024 RSV Immunization Adult Patients Completed 06/05/2024, 07/16/2023, 07/16/2023 Influenza Vaccine Completed 06/23/2025, , 06/18/2024, Additional history exists Pneumococcal Vaccine: 50+ Years Completed 06/23/2025, 06/18/2024, 04/02/2023, Additional history exists Hepatitis A Vaccines Aged Out 08/18/2025 No long er eligible based on patient's age to complete this topic HIB Vaccines Aged Out No longer eligi ble based on patient's age to complete this topic HPV Vaccines Aged Out No longer eligi ble based on patient's age to complete this topic IPV Vaccines Aged Out No longer eligi ble based on patient's age to complete this topic MMR Vaccines Aged Out No longer eligi ble based on patient's age to complete this topic Meningococcal ACWY Vaccine Aged Out N o longer eligible based on patient's age to complete this topic Meningococcal B Vaccine Aged Out No l onger eligible based on patient's age to complete this topic RSV Immunization Patients Under 20 months Aged Out No longer eligible based on patient's age to complete this topic Varicella Vaccines Aged Out No longer eligible based on patient's age to complete this topic Procedures Procedure Name Priority Date/Time Associated Diagnosis Comments NM ARTHROCENTESIS/ASPIRA TION/INJECTION INTERMEDIATE JOINT/BURSA WO U/S GUID Routine 07/07/2025 8:30 AM EDT Chronic pain of right ankle BASIC METABOLIC PANEL STAT 03/16/2025 8:39 AM EDT LIPID PANEL WITH REFLEX TO DIRECT LDL Routine 08/21/2024 10:41 AM EST Uncontrolled hypertension HM FALLS RISK ASSESSMENT Routine 06/19/2024 HEMOGLOBIN A1C Routine 05/13/2024 COLONOSCOPY Routine 04/19/2024 URINE ALBUMIN CREATININE RATIO Routine 01/30/2024 HEPATITIS C SCREENING Routine 03/20/2013 from Last 3 Months or Most Recently Relevant to Health Maintenance Results * NM ARTHROCENTESIS/ASPIRATION/INJECTION INTERMEDIATE JOINT/BURSA WO U/S GUID (07/07/2025 8:30 AM EDT) Narrative Lazarus Cheng DPM - 07/07/2025 8:30 AM EDT Lazarus Cheng DPM 07/07/2025 8:31 AM M Inj/Asp: R ankle Indications: pain Details: 25 G needle Medications: 0.5 mL lidocaine 1 %; 40 mg triamcinolone acetonide 40 mg/mL Informed Consent: Laterality: Right Lazarus Cheng DPM IN CLINIC/BEDSIDE ORDERABLE S Final Result * (ABNORMAL) Basic metabolic panel (03/16/2025 8:39 AM EDT) Sodium 135 133 - 145 mmol/L LAB CHEMISTRY METHOD 03/16/2025 9:22 AM [facility] Potassium 4.5 3.5 - 5.5 mmol/L LAB CHEMISTRY METHOD 03/16/2025 9:22 AM [facility] Chloride 105 96 - 110 mmol/L LAB CHEMISTRY METHOD 03/16/2025 9:22 AM [facility] CO2 25 21 - 32 mmol/L LAB CHEMISTRY METHOD 03/16/2025 9:22 AM [facility] Anion Gap 5 3 - 11 LAB CHEMISTRY METHOD 03/16/2025 9:22 AM [facility] Glucose 115(H) 70 - 100 mg/dL LAB CHEMISTRY METHOD 03/16/2025 9:22 AM [facility] BUN 26(H) 5 - 25 mg/dL LAB CHEMISTRY METHOD 03/16/2025 9:22 AM EDT [facility] Creatinine 1.37(H) 0.70 - 1.30 mg/dL LAB CHEMISTRY METHOD 03/16/2025 9:22 AM EDT [facility] eGFR 53(L) >=60 mL/min/1. 73m2 LAB CHEMISTRY METHOD 03/16/2025 9:22 AM EDT [facility] Comment:Calculation based on the Chronic Kidney Disease Epidemiology Collaboration (CKD-EPI) equation refit without adjustment for race. BUN/Creatinine Ratio 19.0 LAB CHEMISTRY METHOD 03/16/2025 9:22 AM EDT [facility] Calcium 9.3 8.5 - 10.5 mg/dL LAB CHEMISTRY METHOD 03/16/2025 9:22 AM EDT [facility] Blood Venous blood specimen / Unknown Venipuncture / Unknown 03/16/2025 8:39 AM EDT 03/16/2025 8:53 AM EDT us Greyson Mckeon MD LAB BLOOD ORDERABLES Final Res ult [facility] [address] [place] [address], * (ABNORMAL) Lipid panel with reflex to direct LDL (08/21/2024 10:41 AM EST) Cholesterol 270(H) 0 - 200 mg/dL LAB CHEMISTRY METHOD 08/21/2024 12:32 PM EST [facility] Triglycerides 106 0 - 150 mg/dL LAB CHEMISTRY METHOD 08/21/2024 12:32 PM EST [facility] HDL 99 >=40 mg/dL LAB CHEMISTRY METHOD 08/21/2024 12:32 PM EST [facility] LDL Calculated 150(H) 0 - 100 mg/dL LAB CHEMISTRY METHOD 08/21/2024 12:32 PM EST [facility] VLDL Cholesterol Aman 21.2 mg/dL LAB CHEMISTRY METHOD 08/21/2024 12:32 PM EST [facility] Non HDL Chol. (LDL+VLDL) 171(H) <145 mg/dL LAB CHEMISTRY METHOD 08/21/2024 12:32 PM EST [facility] Chol/HDL Ratio 2.7 0.0 - 4.4 LAB CHEMISTRY METHOD 08/21/2024 12:32 PM EST [facility] Blood Venous blood specimen / Unknown Venipuncture / Unknown 08/21/2024 10:41 AM EST 08/21/2024 10:41 AM EST Marilee Jain NP LAB BLOOD ORDERABLES Final R esult [facility] [address] [place] [address], * Falls Risk Assessment (06/19/2024) [facility] Falls Risk Assessment Abstracted Historical Provider HEALTH MAINTENANCE Final Result * Hemoglobin A1c (05/13/2024) [facility] Hemoglobin A1C 4.7 <=6.5 % Blood Venous blood specimen / Unknown Result [facility] Historical Provider LAB BLOOD ORDERABLES Edit ed Result - Final * Colonoscopy (04/19/2024) [facility] Colonoscopy No Interpretation , Abstracted Anatomical Region Laterality Modality Other Historical Provider HEALTH MAINTENANCE Final Result * Urine Albumin Creatinine Ratio (01/30/2024) [facility] Urine Albumin Creatinine Ratio Abstracted Historical Provider HEALTH MAINTENANCE Final Result * Hepatitis C Screening (03/20/2013) [facility] Hepatitis C Screening Abstracted us Historical Provider HEALTH MAINTENANCE Final Result from Last 3 Months or Most Recently Relevant to Health Maintenance Insurance MEDICARE [facility] [address] [place] [address] Care Teams Boat Joiner Helper Relationship Specialty Start Date End Date Gareth Schofield MD [address] [place] [phone] PCP - General 04/02/23
--- OUTSIDE RECORDS SUMMARY | 2025-09-04 13:35 | XMS_ITS ---
[facility] Name [facility] Organization Unknown Care Team Organization Name Specialty Phone Email Start Date End Da te [facility] BEHZAD ALFONSO Primary Care [email or web address] 09/12/2023 05/19/2024
== END 2025-09-04 12:13 | disposition home or self-care (01) ==
LOC: HO.HPHYS 11:03
PROVIDERS: PCP Internal Medicine; Visit Provider Physical Medicine & Rehabilitation
DX: M54.16 Radiculopathy, lumbar region (principal)
CPT/HCPCS: 64483

== ENCOUNTER 2025-09-04 11:03 | Outpatient (REF) | payer MEDICARE, OTHER, SELFPAY | END 2025-09-04 11:04 | disposition home or self-care (01) | LOC: HO.HPHYSR 11:03 | PROVIDERS: PCP Internal Medicine; Visit Provider Physical Medicine & Rehabilitation | DX: M54.16 Radiculopathy, lumbar region (principal) | CPT/HCPCS: 64483; J2003; J3301; Q9967 ==

== ENCOUNTER 2025-09-29 08:51 | Outpatient (AMB) | payer MEDICARE, OTHER, SELFPAY ==
--- NOTE | 2025-09-29 08:57 | A.PHYSOV ---
Vital Signs 09/29/25 08:58 Height 5 ft 10 in Weight 156 lb BMI 22.4 Intake Visit Reasons: F/U after injection 09/04/2025 Intake Note: Patient is a 80 year old male here today for follow up after Bilateral L4 TFE on 09/04/25. Medical Unit Secretary Required: No Allergies No Known Allergies Allergy (Verified 09/29/25 08:59) HPI Comments Details: History of Present Illness The patient is a 80 year old male presenting for chronic pain management. He has a history of chronic low back pain, for which prior injections provided only about one week of relief, and two different types of injections have been attempted. Patient underwent bilateral L4 TFESI as well as L5-S1 KARTHIKEYAN with good relief of his symptoms for 1 week and then his pain returned. At this point I do not believe any further epidural injections will be helpful. He reports his back pain has now moved to the central area. He has a follow-up appointment with his doctor on October 20 regarding his back and an unspecified heart condition, and he is a candidate for back surgery pending cardiac clearance. For chronic pain, he reports that Tramadol provided minimal relief, while Percocet was more effective. He also has chronic shoulder pain, for which he last received injections in August. The patient denies a history of diabetes. Patient is requesting repeat bilateral knee cortisone injection today. Pain Description - Low Back Pain: Reports the pain has moved to the center of his back. - Shoulder Pain: Reports his shoulders really hurt. - Knee Pain: Presents for bilateral knee injections for pain. [facility] Surgical History History of ankle surgery H/O: knee surgery Social History Alcohol intake: current Alcohol intake frequency: does not drink Patient Tobacco Use Status: Never used Tobacco Current occupational status: retired Review of Systems Narrative Review of Systems - Musculoskeletal: Reports back pain which has moved to the center and significant shoulder pain. - Constitutional: Denies diabetes. - Cardiovascular: Reports a history of a heart condition that is being monitored. Physical Exam Exam Exam: Physical Exam Lumbar Spine: Examination of his lumbar spine, there is no visible swelling or deformity. He is tender to lower lumbar facets. Has full range of motion of his lumbar spine. He does have an increase in pain with facet loading. Special Tests: Lhermittes sign was negative Heel Toe walk is normal Left straight leg raise: Negative Right straight leg raise: Negative Special tests Leeann test is negative Ganslen's test is negative SI Joint compression test negative Sarmad test negative Piriformis stretch is negative Lower Extremities: Full range of motion bilateral lower extremities. He is tender to the medial joint line bilaterally. No effusion. No calf pain or edema. Neuro: Sensation: Intact to lower extremities bilaterally Strength L2 (Psoas): 5/5 on the left and 5/5 on the right. L3 (Quads): 5/5 on the left and 5/5 on the right. L4 (Ant tibialis): 5/5 on the left and 5/5 on the right. L5 (EHL) 5/5 on the left and 5/5 on the right. S1 (Gastroc): 5/5 on the left and 5/5 on the right. DTR L4: (Patellar) Left 1 Right 1 S1: (Achilles) Left 1 Right 1 Babinski Downgoing No pathologic clonus. No involuntary movement. Vital Signs: BMI result Body Mass Index 22.4 Office Procedures AMB Knee Injection AMB Knee Injection Procedure Details: Bilateral Knee injection: The risks, benefits and complications of the left knee injection were discussed with the patient including but not limited to increased serum glucose, infection, nerve pain, fat atrophy, pigment augmentation, bleeding and pain. All questions were answered to the patient's satisfaction. Verbal consent was obtained. The patient was eager to proceed. Using aseptic technique with Betadine, ethyl chloride was then used to desensitize the skin. Using a 22-gauge needle 40 mg of Kenalog and 3 mL 2% lidocaine were injected into the knee joint. A Band-Aid was applied. Patient tolerated the procedure well without immediate complication. Postinjection instructions were given. The procedure was repeated on the right. Knee Injection - : Bilateral All charges added?: Procedure code (CPT) selection complete Office Meds Kenalog 40 mg/mL suspension for injection Performing Provider: GLORIA Hauser Performing Location: [facility] Administered by: GLORIA Hauser on 09/29/25 09:30 Dose Route Admin Location Dispensed Lot Number Expiration Date [facility] [place] 40 mg intra-articular 1 mL [id number] [employer] Total Dispensed Waste 1 mL 0 % lidocaine (PF) 20 mg/mL (2 %) injection solution Performing Provider: GLORIA Hauser Performing Location: [facility] Administered by: GLORIA Hauser on 09/29/25 09:30 Dose Route Admin Location Dispensed Lot Number Expiration Date NDC [place] 60 mg intra-articular 5 mL [id number] [employer] Total Dispensed Waste 5 mL 40 % Assessment & Plan Assessment & Plan (1) Lumbar radiculopathy: Code(s): M54.16 - Radiculopathy, lumbar region Category: Medical (2) Spinal stenosis, lumbar region with neurogenic claudication: Code(s): M48.062 - Spinal stenosis, lumbar region with neurogenic claudication Category: Medical (3) Bilateral primary osteoarthritis of knee: Code(s): M17.0 - Bilateral primary osteoarthritis of knee Category: Medical Plan Pain Management - Analgesia: The patient reports prior back injections provided relief for only one week. - He states Tramadol provided only minimal relief, whereas Percocet was more effective. - Aberrant Drug-Related Behaviors: The patient declined a pain contract and requested intermittent prescriptions for Percocet as needed. Plan Patient was informed and verbally consented to the use of an ambient scribe for clinic note documentation during this visit. 1. Chronic Low Back Pain Two different types of prior injections were noted to be ineffective, providing only short-term relief for about one week. Further injections are not considered worthwhile at this time. The patient has an upcoming appointment with his doctor on October 20 to discuss his back pain and cardiac status, as he is a candidate for back surgery pending cardiac clearance. The option for a surgical consultation was discussed. 2. Bilateral Knee Pain Informed consent was obtained for bilateral knee injections, reviewing the risks of infection, bleeding, and nerve damage. The area was sterilized, and injections were administered to the knees during the visit. 3. Bilateral Shoulder Pain The patient reports significant shoulder pain, with last injections administered in August. It is too early to repeat the shoulder injections. A follow-up appointment is scheduled in two months for shoulder injections. 4. Chronic Pain Management A review of medications revealed that Tramadol offered minimal benefit, while Percocet was more effective for the patient's pain. The patient declined a pain contract and preferred intermittent prescriptions. A prescription for Percocet will be sent to his pharmacy for as-needed use. Discussion Notes I discussed with the patient that his prior back injections have provided only short-term relief, and therefore, I do not recommend pursuing further injections for his back at this time. We discussed that he could see a surgeon for his back whenever he chooses. I obtained informed consent for today's knee injections after reviewing the risks, including infection, nerve damage, and bleeding. We reviewed his pain medications, noting that Percocet has been more effective for him than Tramadol. I agreed to send a prescription for Percocet for him to use as needed. I advised him that it is too early to repeat his shoulder injections and that he should schedule a follow-up appointment in two months for that procedure. Patient Instructions - You will receive injections in your knees today. - We will not do any more injections in your back because they have not provided long-lasting help. - You can see a back surgeon if you want to consider surgery. - A prescription for Percocet will be sent to your pharmacy. - Make an appointment at the assignment desk editor to come back in two months for your shoulder injections. - Remember to see your doctor on October 20 about your back and heart. Orders: Orders AMB Knee Injection Today M17.0 - Bilateral primary osteoarthritis of knee Medications: New oxycodone-acetaminophen 5-325 mg (Percocet) Partial Fill upon patient request. 1 tab PO Q6H PRN 28 tabs 0RF pain 7 days M17.0 - Bilateral primary osteoarthritis of knee, M48.062 - Spinal stenosis, lumbar region with neurogenic claudication, M54.16 - Radiculopathy, lumbar region Coding Level of Care Code Est Pt Level 4 (35668) Diagnoses Lumbar radiculopathy M54.16 Spinal stenosis, lumbar region with neurogenic claudication M48.062 Bilateral primary osteoarthritis of knee M17.0 CPT Codes AMB Knee Injection - Hip/Bursa Injection - 15493: Bilateral ([id number])
[2025-09-29 08:58] VITALS: BMI 22.4
--- OUTSIDE RECORDS SUMMARY | 2025-09-29 10:51 | XMS_ITS | Encounter Summary ---
Author Organization [employer] Address [address] [place] [address] Care Team Providers Care Data Storage Specialist Name Role Phone Gareth Schofield MD Primary Care Provider [phone] Reason for Visit * Reason Onset Date Comments Walk-in 08/21/2024 Patient in [facility] Encounter Details Date Type Department Care Team (Late st Contact Info) Description 08/21/2024 Nurse Triage Adult Medicine [address] [phone] Gareth Schofield MD [address] [place] [address] Social History Tobacco Use Types Packs/Day Years [...] EST Pt. And pt.'s are in the [facility] , brought into the exam room [...] Elevated BP. Was told by 2 medical office technology instructor to go to ED patient declined to [...] traveled recently to another state outside of [place], [place], [place], [place], [place], [place], [place]? no o If yes, did you [...] Care Team (Late st Contact Info) Description 10/16/2025 8:10 AM EST Office Visit [facility] [address] [place] [place] [address] [place] [address] Dong Lundberg NP [address] [place] [address] [address] [place] [address] 11/19/2025 8:15 AM EST Office Visit Orthopedic Surgery - [place] [id number] [phone] Lazarus Cheng DPSteven [address] [address] documented as of this encounter Visit Diagnoses Not on filedocumented in this encounter Care Teams Data Storage Specialist Relationship Specialty Start Date End Date Gareth Schofield MD [address] [place] [phone] PCP - General 04/02/23 documented as of this encounter
--- OUTSIDE RECORDS SUMMARY | 2025-09-29 10:51 | XMS_ITS | Clinical Summary ---
Author Organization [facility] Address [address] [place] [address] Phone Care Team Providers Care Vp Ad Products And Planning Name Role Phone Unavailable Primary Care Provider [...] the evening. 05/13/2024 Active ergocalciferol 1.25 MG (68010 UT) capsule Take 50,000 Units by mouth [...] Office Visit [facility] [address] [place] [id number] Demarcus Simeon MD [address] [address] Health Maintenance Due Date Last [...] age to complete this topic Insurance Medicare [facility] Medicare [facility]
--- OUTSIDE RECORDS SUMMARY | 2025-09-29 10:51 | XMS_ITS | Clinical Summary ---
Author Organization 175 [facility] Address [address] [place] [address] Phone Care Team Providers Care Dispatcher Service Chief Name Role Phone Gareth Schofield MD Primary Care Provider [phone] Allergies Active Allergy Reactions Criticality Noted Date Comments Other 02/06/2007 Seasonal Allergies Other Reaction(s): Runny Nose/Rhinitis Medications docusate sodium (COLACE) 100 mg capsule Take 1 capsule (100 mg total) by mouth 2 (two) times a day. 05/13/20 24 Active folic acid (FOLVITE) 1 mg tablet Take 1 tablet (1,000 mcg total) by mouth 1 (one) time each day. Active cyanocobalamin (VITAMIN B-12) 1,000 mcg tablet Take 1 tablet (1,000 mcg total) by mouth 1 (one) time each day. 06/19/20 24 Active magnesium oxide (MAG-OX) 400 mg magnesium tablet Take 1 tablet (400 mg total) by mouth 1 (one) time each day. 90 tablet 1 09/12/20 24 Active riboflavin (VITAMIN B2) 400 mg tablet Take 1 tablet (400 mg total) by mouth 1 (one) time each day. 90 tablet 1 09/12/20 24 Active aspirin 81 mg EC tablet Take 1 tablet (81 mg total) by mouth 1 (one) time each day. Active fexofenadine (MERLYN) 180 mg tablet Take 1 tablet (180 mg total) by mouth at bedtime as needed (allergies/ itching). 30 tablet 2 01/16/20 25 Active amLODIPine (NORVASC) 5 mg tablet TAKE 1 TABLET BY MOUTH EVERY DAY 90 tablet 1 03/05/20 25 Active oxyCODONE-acet aminophen (PERCOCET) 5-325 mg per tablet Take 1 tablet by mouth 4 (four) times a day if needed. Max Daily Amount: 4 tablets 04/20/20 25 Active lisinopriL (PRINIVIL,ZEST RIL) 30 mg tablet Take 1 tablet (30 mg total) by mouth 1 (one) time each day. In addition to 2.5 mg daily 90 each 1 04/27/20 25 Active pantoprazole (PROTONIX) 40 mg EC tablet Take 1 tablet (40 mg total) by mouth 2 (two) times a day. 180 tablet 1 04/27/20 25 Active predniSONE (DELTASONE) 10 mg tablet 20 mg daily for 4 days and 10 mg daily for 4 days. 12 each 04/27/20 25 Active cholecalcifero l (VITAMIN D-3) 25 mcg (1,000 unit) tablet Take 1 tablet (1,000 Units total) by mouth 1 (one) time each day. 90 tablet 3 04/27/20 25 Active lisinopriL (PRINIVIL,ZEST RIL) 2.5 mg tablet TAKE 1 TABLET (2.5 MG TOTAL) BY MOUTH 1 (ONE) TIME EACH DAY. IN ADDITION TO LISINOPRIL 30 MG DAILY 90 tablet 07/16/20 25 Active furosemide (LASIX) 20 mg tablet TAKE 1 TABLET (20 MG TOTAL) BY MOUTH ONE TIME EACH DAY 90 tablet 09/08/20 25 Active furosemide (LASIX) 20 mg tablet TAKE 1 TABLET (20 MG TOTAL) BY MOUTH ONE TIME EACH DAY 90 tablet 1 03/05/20 25 025 Discontinued Hospital, Clinic, or Other Facility Administered Medication Ordered Dose Route Frequency Start Date End Date Status lidocaine (XYLOCAINE) 1 % injection 0.5 mLIndications:Chroni c pain of right ankle .5 mL Once PRN Procedure 09/10/2025 09/10/2025 Ended triamcinolone acetonide (KENALOG-40) 40 mg/mL injection 40 mgIndications:Chroni c pain of right ankle 40 mg Once PRN Procedure 09/10/2025 09/10/2025 Ended Active Problems Problem Noted Date Diagnosed Date Gastroesophageal reflux dise ase with esophagitis without hemorrhage 04/27/2025 Fatty liver 07/11/2024 Chronic deep vein thrombosis (DVT) of distal vein of right lower extremity 06/19/2024 B12 deficiency 06/19/2024 Gastrointestinal hemorrhage 06/19/2024 Constipation 05/13/2024 Gastroesophageal reflux disease without esophagi tis 05/13/2024 Acute deep vein thrombosis ( DVT) of calf muscle vein of right lower extremity 05/01/2024 Venous insufficiency 05/01/2024 Assessment & Plan (04/16/2025 9:27 AM EDT): Edema likely secondary to venous insufficiency. Continue with furosemide. Continue with compression stockings. Educated about reducing sodium intake, elevation of extremities while seated, weight loss and exercise. Bilateral leg edema 04/24/2024 Stage 3 chronic kidney disease 03/27/2024 Severe aortic stenosis 02/20/2024 Overview (04/16/2025): [...] office and the TAVR coordinators at the [facility] structural heart disease program. After all the [...] AM EDT): Diet controlled. Chronic diastolic CHF (congestive heart failure) 06/29/2023 Assessment & Plan (04/16/2025 9:27 AM [...] Encounters Date Type Department Care Team Description 09/10/2025 8:15 AM EST Office Visit Orthopedic Surgery [facility] [address] [phone] Lazarus Cheng DPM Arthritis of both feet (Primary Dx); Lumbosacral radiculopathy; Disorder of ligament of ankle, right; Chronic pain of right ankle 07/07/2025 8:30 AM EDT Office Visit Orthopedic Surgery [facility] [address] [phone] Lazarus Cheng DPM Arthritis of both feet (Primary Dx); Lumbosacral radiculopathy; Controlled type 2 diabetes with neuropathy (CMS/HCC V24, CMS/HCC V28); Disorder of ligament of ankle, right; Chronic pain of right ankle from Last 3 Months Immunizations Immunization Administration Dates Next Due COVID-19 (Pfizer/Comirnaty) 12yo and older 06/18/2024 H1N1 Inj Preservative Free 09/16/2009 Hepatitis A-Hepatitis B Adul t (Twinrix) 18yo and older 09/18/2025,08/18/2025 Influenza Quadravalent, MDCK , 0.5ml, with preservative (Flucelvax) 6mo and older 06/18/2023 Influenza trivalent, 0.5mL ( Fluad) 65yo and older 06/08/2018,06/27/2017,06/22/2016 Influenza trivalent, 0.5mL ( Fluzone High-dose) 65yo and older 06/23/2025,06/18/2024,06/08/2018,06/08,06/22/2016 Influenza trivalent, 0.5mL, preservative free (Fluarix; FluLaval; Fluzone) ages 6mo and older (Afluria) 3 years and older 07/17/2022,08/12/2021,07/23/2020,07/17,06/25/2014,07/23/2013,09/03/2012 ,06/04/2010,07/01/2008,08/20/2007,08/03,08/04/2005 Influenza, Unspecified 06/18/2024,2022,06/08/2018,06/08,06/27/2017,06/22/2016 PPD Test 01/04/2004 Pfizer Covid-19 Bivalent, Or iginal + Ba.1 (Non-US Trademark COMIRNATY Bivalent) 08/22/2022 Pneumococcal conjugate 13 va lent [...] 2013 PROCEDURE: NM ARTHRODESIS ANKLE OPEN; COMMENT: [facility] CARDIAC CATHETERIZATION DONE ON 03/16/2025 AT [facility] Medical History Medical History Date [...] (Age 76) kidney can cer Maternal Grandfather [place] Maternal Grandmother [place] Mother (Age 76) unknown ca use Paternal Grandfather Paternal Grandmother [place] Sister 1 (Age 58) [...] Record ed Within the last 3 months, ho w many times did you visit the emergency [...] care for your loved ones. For example, child protective services specialist or elderly care for an older adult? [...] Orientation Straight 08/27/2024 10 :02 AM EST Last Filed Vital Signs Vital Sign Reading [...] Description 10/16/2025 8:10 AM EST Office Visit [facility] [address] [place] [address] [address] [place] [phone] Dong Lundberg NP [address] [place] [address] [address] [place] [phone] 11/19/2025 8:15 AM EST Office Visit Orthopedic Surgery - [place] [address] [phone] Lazarus Cheng, DPSteven [address] [address] Health Maintenance Due Date Last Done Comments [...] Health Screening 09/12/2025 09/12/2024 Hepatitis B Vaccines (3 of 3 - Hep B Twinrix 3-dose series) 02/16/2026 09/18/2025, 08/18/2025 Diabetes: Annual GFR (Glomerular Filtration Rate) 03/16/2026 03/16/2025, 09/12/2024, 08/21/2024, Additional history exists Hypertension/CHF/CAD Annual BMP Blood Test 03/16/2026 03/16/2025, 09/12/2024, 08/21/2024, Additional history exists Cholesterol Screening (Lipid Panel) 08/21/2029 08/21/2024, 04/13/2023 DTaP,Tdap,and Td Vaccines (5 - Td or Tdap) 06/22/2033 06/22/2023, 08/08/2010, 01/04/2004, Additional history exists Hepatitis C Screening Completed 03/20/2013 Zoster Vaccines Completed 07/04/2023, 07/0 03/2021, 04/13/2013, Additional history exists Colorectal Cancer Screening: Colonoscopy Discontinued 04/19/2024 RSV Immunization Adult Patients Completed 06/05/2024, 07/16/2023, 07/16/2023 Influenza Vaccine Completed 06/23/2025, , 06/18/2024, Additional history exists Pneumococcal Vaccine: 50+ Years Completed 06/23/2025, 06/18/2024, 04/02/2023, Additional history exists Hepatitis A Vaccines Aged Out 09/18/2025, 08/18/20 25 No longer eligible based on patient's age [...] TION/INJECTION INTERMEDIATE JOINT/BURSA WO U/S GUID Routine 09/10/2025 8:15 AM EST Chronic pain of right ankle NM ARTHROCENTESIS/ASPIRA TION/INJECTION INTERMEDIATE JOINT/BURSA WO U/S GUID Routine 07/07/2025 8:30 AM EDT Chronic pain of right ankle BASIC METABOLIC PANEL STAT 03/16/2025 8:39 AM EDT LIPID PANEL WITH REFLEX TO DIRECT LDL Routine 08/21/2024 10:41 AM EST Uncontrolled hypertension FALLS RISK ASSESSMENT Routine 06/19/2024 HEMOGLOBIN A1C Routine 05/13/2024 COLONOSCOPY Routine 04/19/2024 URINE ALBUMIN CREATININE RATIO Routine 01/30/2024 HEPATITIS C SCREENING Routine 03/20/2013 from Last 3 Months or Most Recently Relevant to Health Maintenance Results * NM ARTHROCENTESIS/ASPIRATION/INJECTION INTERMEDIATE JOINT/BURSA WO U/S GUID (09/10/2025 8:15 AM EST) Narrative Lazarus Cheng DPM - 09/10/2025 8:15 AM EST Lazarus Cheng DPM 09/10/2025 12:46 PM M Inj/Asp: R ankle Indications: pain Details: 25 G needle Medications: 0.5 mL lidocaine 1 %; 40 mg triamcinolone acetonide 40 mg/mL Informed Consent: Laterality: Right us Lazarus Cheng DPM IN CLINIC/BEDSIDE ORDERABLE S Final Result * NM ARTHROCENTESIS/ASPIRATION/INJECTION INTERMEDIATE JOINT/BURSA WO U/S GUID (07/07/2025 8:30 AM EDT) Narrative Lazarus Cheng DPM - 07/07/2025 8:30 AM EDT Lazarus Cheng DPM 07/07/2025 8:31 AM M Inj/Asp: R ankle Indications: pain Details: 25 G needle Medications: 0.5 mL lidocaine 1 %; 40 mg triamcinolone acetonide 40 mg/mL Informed Consent: Laterality: Right us Lazarus Cheng DPM IN CLINIC/BEDSIDE ORDERABLE S Final Result * (ABNORMAL) Basic metabolic panel (03/16/2025 8:39 AM EDT) Sodium 135 133 - 145 mmol/L LAB CHEMISTRY METHOD 03/16/2025 9:22 AM [facility] Potassium 4.5 3.5 - 5.5 mmol/L LAB CHEMISTRY METHOD 03/16/2025 9:22 AM [facility] Chloride 105 96 - 110 mmol/L LAB CHEMISTRY METHOD 03/16/2025 9:22 AM [facility] CO2 25 21 - 32 mmol/L LAB CHEMISTRY METHOD 03/16/2025 9:22 AM [facility] Anion Gap 5 3 - 11 LAB CHEMISTRY METHOD 03/16/2025 9:22 AM [facility] Glucose 115(H) 70 - 100 mg/dL LAB CHEMISTRY METHOD 03/16/2025 9:22 AM [facility] BUN 26(H) 5 - 25 mg/dL LAB CHEMISTRY METHOD 03/16/2025 9:22 AM [facility] Creatinine 1.37(H) 0.70 - 1.30 mg/dL LAB CHEMISTRY METHOD 03/16/2025 9:22 AM [facility] eGFR 53(L) >=60 mL/min/1. 73m2 LAB CHEMISTRY METHOD 03/16/2025 9:22 AM EDT [facility] Comment:Calculation based on the Chronic Kidney Disease Epidemiology Collaboration (CKD-EPI) equation refit without adjustment for race. BUN/Creatinine Ratio 19.0 LAB CHEMISTRY METHOD 03/16/2025 9:22 AM EDT [facility] Calcium 9.3 8.5 - 10.5 mg/dL LAB CHEMISTRY METHOD 03/16/2025 9:22 AM EDT [facility] Blood Venous blood specimen / Unknown Venipuncture / Unknown 03/16/2025 8:39 AM EDT 03/16/2025 8:53 AM EDT us Greyson Mckeon MD LAB BLOOD ORDERABLES Final Res ult [facility] [address] [place] [address], [place] [phone] * (ABNORMAL) Lipid panel with reflex to direct LDL (08/21/2024 10:41 AM EST) Cholesterol 270(H) 0 - 200 mg/dL LAB CHEMISTRY METHOD 08/21/2024 12:32 PM [facility] Triglycerides 106 0 - 150 mg/dL LAB CHEMISTRY METHOD 08/21/2024 12:32 PM [facility] HDL 99 >=40 mg/dL LAB CHEMISTRY METHOD 08/21/2024 12:32 PM EST [facility] LDL Calculated 150(H) 0 - 100 mg/dL LAB CHEMISTRY METHOD 08/21/2024 12:32 PM [facility] VLDL Cholesterol Aman 21.2 mg/dL LAB CHEMISTRY METHOD 08/21/2024 12:32 PM EST [facility] Non HDL Chol. (LDL+VLDL) 171(H) <145 mg/dL LAB CHEMISTRY METHOD 08/21/2024 12:32 PM [facility] Chol/HDL Ratio 2.7 0.0 - 4.4 LAB CHEMISTRY METHOD 08/21/2024 12:32 PM EST [facility] Blood Venous blood specimen / Unknown Venipuncture / Unknown 08/21/2024 10:41 AM EST 08/21/2024 10:41 AM EST Marilee Jain [employer] LAB BLOOD ORDERABLES Final R esult [facility] [address] [place] [address], * Falls Risk Assessment (06/19/2024) [facility] Falls Risk Assessment Abstracted Historical Provider HEALTH MAINTENANCE Final Result * Hemoglobin A1c (05/13/2024) [facility] Hemoglobin A1C 4.7 <=6.5 % Blood Venous blood specimen / Unknown Result [facility] Historical Provider LAB BLOOD ORDERABLES Edit ed Result - Final * Colonoscopy (04/19/2024) Pathologist [facility] Colonoscopy No Interpretation , Abstracted Anatomical Region Laterality Modality Other Historical Provider HEALTH MAINTENANCE Final Result * Urine Albumin Creatinine Ratio (01/30/2024) Pathologist [facility] Urine Albumin Creatinine Ratio Abstracted Historical Provider HEALTH MAINTENANCE Final Result * Hepatitis C Screening (03/20/2013) Pathologist [facility] Hepatitis C Screening Abstracted Historical Provider HEALTH MAINTENANCE Final Result from Last 3 Months or Most Recently Relevant to Health Maintenance Insurance MEDICARE [facility] Care Teams Dispatcher Service Chief Relationship Specialty Start Date End Date Gareth Schofield MD [address] [place] [phone] PCP - General 04/02/23
== END 2025-09-29 09:29 | disposition home or self-care (01) ==
LOC: HO.HPHYS 08:51
PROVIDERS: PCP Internal Medicine; Visit Provider Physician Assistant
DX: M54.16 Radiculopathy, lumbar region (principal); M48.062 Spinal stenosis, lumbar region with neurogenic claudication; M17.0 Bilateral primary osteoarthritis of knee
CPT/HCPCS: 20610; 99214

== ENCOUNTER → 2025-09-29 08:51 | Outpatient (BNVA) | payer MEDICARE, OTHER, SELFPAY | PROVIDERS: PCP Internal Medicine; Visit Provider Physician Assistant | DX: M17.0 Bilateral primary osteoarthritis of knee (principal); M54.16 Radiculopathy, lumbar region; M48.062 Spinal stenosis, lumbar region with neurogenic claudication | CPT/HCPCS: 20610; 99212; J2003; J3301 ==